=== PATIENT | male | born 2000 | race Caucasian/White ===

== ENCOUNTER 2019-11-11 13:43 | Emergency (ER) | payer OTHER, SELFPAY ==
--- NOTE | ~2019-11-11 | XR_ITS ---
XR foot RT min 3V DATE: 11/11/2019 14:09 INDICATION: Rolled right foot 3 days ago. Lateral foot pain. TECHNIQUE: 4 views COMPARISON: None FINDINGS: No fracture or dislocation, periosteal reaction or bone destruction. Joint spaces are prese rved. IMPRESSION: No significant abnormality Reviewed, dictated and finalized at location A. IMPRESSION: No significant abnormality
[2019-11-11 13:58] VITALS: BP 145/86; PULSE 104; RESP 16; TEMP 37.2; O2SAT 98
--- NOTE | 2019-11-11 14:25 | ED.LOWEXIN ---
HPI - Extremity Injury (Lower) General Chief Complaint: Extremity Injury, Lower Stated Complaint: injury Time Seen by Provider: 11/11/19 14:10 Source: patient and RN notes reviewed Mode of arrival: ambulatory Limitations: no limitations History of Present Illness HPI Narrative: Patient presents today complaining of a right foot injury 3 days ago at work. Patient works for [employer]. Reports he was carrying a TV, stepped backwards onto a pallet, twisting his foot. Denies numbness or tingling in the leg or foot. Currently rates his pain 2/10 and has been applying ice, taking ibuprofen, and wrapping the foot with mild relief. He did go to work yesterday but was forced to leave due to pain with weightbearing. MD complaint: foot injury Related Data Home Medications Medication Instructions Recorded Confirmed No Home Medications 11/11/19 11/11/19 Allergies Allergy/AdvReac Type Severity Reaction Status Date / Time Penicillins Allergy Unknown Hives Verified 07/17/19 05:36 Review of Systems Review of Systems: Narrative: CONSTITUTIONAL: Denies body aches, fever, chills, or sweats. EYES: Denies visual changes, redness, or discharge. ENT: Denies rhinorrhea, congestion, sore throat, or otalgia. CARDIOVASCULAR: Denies chest pain, palpitations, or edema. RESPIRATORY: Denies cough or dyspnea. GASTROINTESTINAL: Denies abdominal pain, nausea, vomiting, or diarrhea. GENITOURINARY: Denies dysuria or hematuria. SKIN: Denies rash, itching, or wounds. MUSCULOSKELETAL: Denies back pain, or myalgia.+ Right foot injury NEUROLOGIC: Denies headache, numbness, tingling, or weakness. PSYCH: Denies depression or anxiety. [facility] Social History Social History (Updated 07/17/19 @ 06:11 by Shaylee Medina MD) Smoking status: Never smoker Alcohol intake: never Substance use: never Comments At time of signature, I have reviewed and agree with nursing past medical, surgical, social and family history unless otherwise noted. Please see nursing chart for further information. There is no relevant family history pertinent to the presenting complaint Exam Narrative: Exam Narrative: GENERAL: Well-appearing, well-nourished, and in no acute distress. HEAD: Normocephalic, atraumatic. EYES: EOMI. No redness or drainage. Conjunctivae normal. ENT: Mucous membranes pink and moist. NECK: Normal AROM. CHEST: No respiratory distress. EXTREMITIES: Right foot: Tenderness to the proximal lateral foot with scant edema. No ecchymosis. No other tenderness throughout the foot or ankle. Distal sensation intact. Capillary refill normal. Pedal pulse normal. Full AROM of the ankle and all toes without difficulty. SKIN: Warm, dry, no rash. Capillary refill normal. Normal skin turgor. NEURO: No focal deficits. Alert and oriented x3. Gait steady. PSYCH: Normal affect. No signs of depression or anxiety. Course Vital Signs Vital signs: Vital Signs Temperature 98.9 F 11/11/19 13:58 Pulse Rate 104 H 11/11/19 13:58 Respiratory Rate 16 11/11/19 13:58 Blood Pressure 145/86 H 11/11/19 13:58 Pulse Oximetry 98 11/11/19 13:58 Temperature 98.9 F 11/11/19 13:58 Pulse Rate 104 H 11/11/19 13:58 Respiratory Rate 16 11/11/19 13:58 Blood Pressure 145/86 H 11/11/19 13:58 Pulse Oximetry 98 11/11/19 13:58 Reviewed. Pt has been instructed to follow up with his PCP regarding his elevated blood pressure today. MDM - Extremity Injury (Lower) Differential Diagnosis Differential diagnosis: Likely ankle sprain and strain, ankle fracture and other (Foot sprain, foot fracture) Critical Care Time Critical Care Time Critical Care Time: No Discharge Plan Discharge Clinical Impression: Right foot sprain Qualifiers: Encounter type: initial encounter Qualified Code(s): S93.601A - Unspecified sprain of right foot, initial encounter Patient Disposition: Home, Self-Care Condition: Stable Instructions: Foot Sprain (ED) Addition
== END 2019-11-11 14:37 | disposition home or self-care (01) ==
PROVIDERS: Emergency Provider Nurse Practitioner; PCP Pediatrics
DX: S93.601A Unspecified sprain of right foot, initial encounter (principal); W22.09XA Striking against other stationary object, initial encounter
CPT/HCPCS: 73630; 99213; G0463

== ENCOUNTER 2020-03-13 06:30 | Outpatient (NON) | payer OTHER, SELFPAY ==
[2020-03-13 19:20] LABS: SARS-CoV-2 RNA PCR Negative
== END 2020-03-13 06:31 ==
PROVIDERS: Physician Assistant; Visit Provider Family Medicine
DX: R50.9 Fever, unspecified (principal); Z20.828 Contact with and (suspected) exposure to other viral communicable diseases
CPT/HCPCS: 87635; C9803; U0003

== ENCOUNTER 2022-06-13 16:55 | Emergency (ER) | payer OTHER, SELFPAY ==
--- NOTE | 2022-06-13 18:29 | ED.URI ---
HPI - URI/Sore Throat General Chief Complaint: Upper Respiratory Infection Stated Complaint: sore throat,body aches Time Seen by Provider: 06/13/22 19:00 Source: patient and RN notes reviewed Mode of arrival: ambulatory Limitations: no limitations History of Present Illness HPI Narrative: 21-year-old male presents with concern for sore throat, headache, body aches, feeling feverish. He reports symptoms started yesterday. He reports he has been exposed to his dad similar symptoms. He denies taking any [id number] medications for his symptoms. He denies nasal congestion, ear pain, cough. MD elicited complaint: sore throat Related Data Allergies Allergy/AdvReac Type Severity Reaction Status Date / Time Penicillins Allergy Unknown Hives Verified 06/13/22 18:32 Review of Systems Review of Systems: CONSTITUTIONAL: Reports malaise, chills, sweats EYES: Denies visual changes, redness, or discharge. ENT: Denies rhinorrhea, congestion, sinus pain, otalgia. Reports sore throat. CARDIOVASCULAR: Denies chest pain, palpitations, or edema. RESPIRATORY: Denies cough. Denies dyspnea. GASTROINTESTINAL: Denies abdominal pain, nausea, vomiting, diarrhea SKIN: Denies rash or itching. MUSCULOSKELETAL: Reports myalgia. NEUROLOGIC: Reports headache. All systems reviewed & are unremarkable except as noted in HPI and below [facility] Family History Family History (Updated 12/05/19 @ 12:35 by Autumn Burgos PA-C) Grandparent Heart disease Father Healthy adult Mother Healthy adult Other Family history of thyroid disease Hypertension Social History Social History Smoking status: Never smoker Alcohol intake: never Substance use: never Comments At time of signature, agree with nursing past medical, surgical, social and family history. There is no relevant family history pertinent to the presenting complaint Exam Narrative: GENERAL: Nontoxic and in no acute distress. HEAD: Normocephalic EYES: PERRLA, conjunctivae clear ENT: Nares clear, no discharge. Mucous membranes moist. TM pearly keane with dull light reflex bilaterally; no tragal tenderness. Oropharynx mildly erythematous without lesions. Tonsils not enlarged and without exudate, no drooling, no hoarseness, no trismus, uvula midline. NECK: Supple. No lymphadenopathy CHEST: Clear to auscultation, breath sounds equal. No wheezing, rhonchi, rales, or stridor. No respiratory distress, speaks in full sentences. HEART: Regular rate and rhythm. No murmur heard. SKIN: Warm, dry, no rash. NEURO: Alert and oriented x3. PSYCH: Normal mood and affect Course Course Emergency Course: Patient is aware of diagnosis, understands and agrees to treatment plan. Anticipatory guidance given. Patient agrees to follow-up as directed and is aware of reasons to seek care at the emergency department. Portions of this record may have been created with voice recognition software Level of Care: Express Care Visit Vital Signs Vital signs: Vital Signs Temperature 97 F L 06/13/22 18:37 Pulse Rate 84 06/13/22 18:37 Respiratory Rate 16 06/13/22 18:37 Blood Pressure 144/86 H 06/13/22 18:37 Pulse Oximetry 100 06/13/22 18:37 Oxygen Delivery Room Air 06/13/22 18:37 Temperature 97 F L 06/13/22 18:37 Pulse Rate 84 06/13/22 18:37 Respiratory Rate 16 06/13/22 18:37 Blood Pressure 144/86 H 06/13/22 18:37 Pulse Oximetry 100 06/13/22 18:37 Oxygen Delivery Room Air 06/13/22 18:37 Reviewed. MDM - URI/Sore Throat MDM Narrative Medical decision making narrative: Differential diagnosis considered: Sainz virus, strep pharyngitis, allergic rhinitis, upper respiratory tract infection, sinusitis, rhinosinusitis, nasopharyngitis. viral pharyngitis, otitis media, otitis externa, pneumonia, bronchitis, viral cough syndrome, viral syndrome, and influenza. Exam findings show no acute concerns or changes; patient
[2022-06-13 18:37] VITALS: BP 144/86; PULSE 84; RESP 16; TEMP 36.1; O2SAT 100
== END 2022-06-13 19:25 | disposition home or self-care (01) ==
PROVIDERS: Emergency Provider Nurse Practitioner; PCP Family Medicine
DX: J02.9 Acute pharyngitis, unspecified (principal)
CPT/HCPCS: 87081; 87804; 99213; G0463